=== PATIENT | female | born 1930 | race Caucasian/White ===

== ENCOUNTER 2016-12-19 19:47 | Inpatient (IN) | payer OTHER ==
--- NOTE | 2016-12-08 20:01 | CONSULTATION REPORT ---
DATE OF CONSULTATION: 11/15/2016 CHIEF COMPLAINT: 1. Necrotic ulcers of left leg HISTORY OF PRESENT ILLNESS: The patient is an 86-year-old woman with a previous stroke and ongoing peripheral neuropathy. She is nonambulatory. She has developed large necrotic ulcers of the left leg and has peripheral vascular disease, in addition. The patient is being seen for these ulcers and in the past has refused amputation. MEDICAL/SURGICAL HISTORY: Past medical history: Includes a stroke on 11/18/2013 involving the left side of her body and the right hemisphere. The patient was beyond the time frame for stroke protocol. Past medical history additionally includes longstanding high blood pressure, GERD, esophageal stenosis, right breast cancer, depression, arthritis, lumbar compression fracture, hypothyroidism, recurrent UTIs, C. difficile. Past surgery : Includes a compression screw and femoral shasta for right hip fracture in 2012, hysterectomy in , right breast lumpectomy and radiation, multiple EGDs and a laparoscopic Zakia with hiatal hernia repair, esophageal dilations, colonoscopy. Gynecology history : She is G3, para 1, AB2. 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 The patient had a miscarriage in one of her pregnancies. MEDICATIONS: 1. Mirtazapine 7.5 mg daily. 2. Alprazolam 0.25 mg q.12 hours as needed. 3. Gabapentin 100 mg daily. 4. Megace 400 mg daily. 5. Alendronate 70 mg weekly. 6. Famotidine 20 mg daily. 7. Tylenol with codeine 300/30 1 tablet as needed. 8. Nystatin powder as needed b.i.d. 9. Multiple vitamin supplements. 10. Started Pletal on 09/13/2016, 100 mg b.i.d. ALLERGIES: 1. SULFA DRUGS. 2. CERTAIN BLOOD PRESSURE MEDICATIONS. 3. IODINE. 4. GASTRIC IRRITATION FROM ASPIRIN. SOCIAL HISTORY: The patient is . She is in a [place] [facility]. She smoked many years ago and has not smoked for long time. She takes a glass of wine in the evenings. 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 Formerly also worked at the [employer]. FAMILY HISTORY: Mother at age 66 from a [place]. The patient's father of Alzheimer disease in his 70s. REVIEW OF SYSTEMS: Reviewed from previous visits and reviewed with the patient. She currently has mainly the problem with her left-sided weakness. She is not in acute pain from this. She is swallowing alright. She is having no acute chest pain or palpitations. She is not acutely short of breath. PHYSICAL EXAMINATION: GENERAL: The patient is alert and cooperative. VITAL SIGNS: Height 69 inches, weight 196, BMI 28.9. Temperature 97.4, respirations 18, blood pressure is low at 60/42 on several measurements. HEENT: The patient is alert and conversant as she always is. CHEST: Clear to auscultation. HEART: Regular rate. There is a systolic upper chest murmur heard. She additionally has bruits versus transmitted murmurs in the neck. There is no active thyromegaly or lymphadenopathy. The abdomen is nontender. EXTREMITIES: Lower extremity evaluation reveals large wounds involving the left medial malleolus measuring 4 x 4.5 cm with necrotic tissue present. There is also an open wound in the left metatarsal fifth head and pressure injuries of the calf. These are all necrotic eschars, which are softening and defined with exposed necrotic tendon and fascia. NEUROLOGIC: The patient is hemiplegic. IMPRESSION: 1. Left lower extremity necrotic ulcers with extensive tissue loss. PLAN: I have recommended the patient consider amputation since she is nonambulatory and these wounds are going to have a great deal of difficulty healing and be unlikely to heal from the standpoint of what I am seeing now. She is, at the time of this explanation, averse to amputation, though she will reconsider this operation, depending on how things progress. If at some point during the course of her wound care she decides to proceed with this recommendation she is to let us know and we will go ahead and proceed with a left leg above knee amputation.
[2016-12-15] VITALS (8 sets, daily range): BP systolic 94–136; BP diastolic 38–56
--- NOTE | 2016-12-15 14:45 | OPERATIVE REPORT ---
DATE OF SURGERY: 12/15/2016 SURGEON: Jamar Thomson MD PREOPERATIVE DIAGNOSIS: 1. Left leg gangrene POSTOPERATIVE DIAGNOSIS: 1. Left leg gangrene PROCEDURES PERFORMED: 1. Left leg above-knee amputation ANESTHESIA: General. INDICATIONS: The patient is an 86-year-old woman with gangrenous changes of her left leg. She has had a previous stroke and is nonambulatory and has a left hemiparesis. SURGICAL TECHNIQUE: The patient was taken to the operating room, where a general anesthetic was administered and the patient prepped and draped in the usual sterile fashion. A fish-mouth incision was designed on the lower leg and anesthetized with 0.5% Marcaine with epinephrine. The incision was incised, and the dissection was carried down with sharp dissection and electrocautery dissection. Note that a tourniquet was in place. Hemostasis during this procedure was obtained with 2-0 Vicryl ligatures, as well as a suture ligature on the major vessels, and clips and electrocautery. After dividing the muscles and soft tissues, the femoral vascular bundle was identified and suture ligated. The posterior tissues were divided. The tissues were retracted and the bone divided with an electrically-driven saw and the edges rounded off with a rasp. The wound was irrigated and the tourniquet was deflated. Hemostasis was completed. Once the wound was totally hemostatic, a flat 10 mm silicone drain was placed in the depth of the wound. The wound was closed in layers using interrupted 2-0 Vicryl suture for the muscular fascia and for the deep dermal layer, and vertical mattress 3-0 nylon sutures to the skin. One 3-0 nylon was used to tie to the drain to prevent its dislodgement, and it was allowed to exit through the lateral corner of the wound. The drain was placed to bulb suction, and the patient left in good condition. No intraoperative complications were encountered.
[2016-12-16] VITALS (7 sets, daily range): BP systolic 89–150; BP diastolic 38–63
[2016-12-17 03:12] VITALS: BP 135/60
[2016-12-17 06:50] VITALS: BP 119/47
[2016-12-17 10:49] VITALS: BP 78/43
[2016-12-17 13:52] VITALS: BP 115/55
[2016-12-17 18:33] VITALS: BP 99/45
[2016-12-17 23:04] VITALS: BP 62/46; BP 92/46
[2016-12-18 02:43] VITALS: BP 89/54
[2016-12-18 06:41] VITALS: BP 108/56
[2016-12-18 10:28] VITALS: BP 137/90
[2016-12-18 14:36] VITALS: BP 90/46
[2016-12-18 18:26] VITALS: BP 75/38
[2016-12-19] VITALS (9 sets, daily range): BP systolic 68–175; BP diastolic 22–148
[~2016-12-19] VITALS: Ht 175.3 cm; Wt 90.0 kg
--- NOTE | 2016-12-19 07:55 | Progress Note ---
Late Entry Date/Time Late Entry Date and Time LATE ENTRY Date of visit: Time of visit: Subjective General POD #4 left BKA Pt. has pain in the left stump. She was also seen for pre existing right leg/ foot ulcers with Diane Finley the wound care nurse. Physical Exam Vital Signs / I&Os Vital Signs Date Time Temp Pulse Resp B/P Pulse O2 O2 Flow FiO2 Ox Delivery Rate 12/19 0639 112/54 12/19 0627 98.6 83 18 95 Room Air 12/19 0343 80 20 122/82 95 12/19 0237 0.0 12/19 0110 90/45 12/19 0001 99.0 93 20 72/65 99 Room Air 12/18 1826 99.1 91 20 75/38 100 Room Air 12/18 1545 Room Air 0.0 12/18 1436 98.4 83 16 90/46 95 Room Air 12/18 1028 100.0 56 18 137/90 96 Room Air I&O 12/18 0800 12/18 1600 12/19 0000 Intake Total 250 680 440 Output Total 160 676 150 Balance 90 4 290 General Appearance Alert, Oriented X3, Cooperative Extremities the stump has some edema blisters, the suture line is viable. There is serous exudated and edema. The right leg has stable wounds on the lateral heel and calf. Assessment and Plan Problem List 1. Status post below knee amputation of left lower extremity Plan start closed wound vac to decrease edema and decrease static lymph and infection risk. 2. Pressure ulcer of right leg Plan Medihoney dressings daily.
--- NOTE | 2016-12-19 18:49 | DIAGNOSTIC IMAGING REPORT ---
PROCEDURE: CT HEAD WITHOUT CONTRAST INDICATION: POSSIBLE STROKE TECHNIQUE: Axial CT images were acquired through the head. Coronal and sagittal reformations were created. COMPARISON: 08/10/2013, 11/18/2013 FINDINGS: Mild motion artifact through the base of the brain. There is moderate cerebral cortical atrophy. Moderate confluent hypodensity in the periventricular and subcortical white matter. Streak artifact across the base of the brain precludes good visualization of the previously identified right pontine infarct No intracranial hemorrhage or extraaxial fluid collections. Ventricles are prominent in size, normal in shape and position. There is no mass, mass effect or midline shift. The davies-white matter differentiation is normal. There is no edema. Mild calcific atherosclerosis of the intracranial internal carotid arteries. The calvarium is intact. The paranasal sinuses and mastoid air cells are normally aerated. The extracranial soft tissues and orbits are normal. IMPRESSION: 1. No CT evidence of acute intracranial process. 2. Moderate diffuse atrophy and chronic microvascular ischemic changes including suboptimally visualized right pontine infarct previously present. 3. Findings discussed with Dr. Louis at [address] scans at this facility use dose modulation, iterative reconstruction, and/or weight-based dosing when appropriate to reduce radiation dose to as low as reasonably achievable.
[~2016-12-19 19:47] MED LIST: ALENDRONATE SOD70 MG PO; ALPRAZOLAM0.25 MG PO; ASPIRIN ADULT L81 M1 PO; FAMOTIDINE20 MG PO; GABAPENTIN100 MG PO; MACROBID100 MG PO; MIRTAZAPINE7.5 MG PO; MULTIPLE VITAMIN PO; NYSTATI1 TOP; TYLENOL/CODEINE #3 PO
[2016-12-20 02:04] VITALS: BP 122/78; BP 68/48
[2016-12-20 08:02] VITALS: BP 97/55
--- NOTE | 2016-12-20 11:08 | DIAGNOSTIC IMAGING REPORT ---
PROCEDURE: XR CHEST 1 VIEW INDICATION: chest congestion, confusion--R/O pneumonia, CHF TECHNIQUE: Portable AP view 10:23 a.m. COMPARISON: Chest 08/29/2016 and 11/18/2013 FINDINGS: Lungs are clear. Heart and mediastinum are normal. Thorax is normal. IMPRESSION: 1. Negative chest.
[2016-12-20 14:30] VITALS: BP 104/44
[2016-12-20 18:10] VITALS: BP 88/48
[2016-12-20 18:15] VITALS: BP 77/39
[2016-12-20 22:35] VITALS: BP 102/64
[2016-12-21] VITALS (7 sets, daily range): BP systolic 86–110; BP diastolic 41–78
--- NOTE | 2016-12-21 07:30 | Progress Note ---
Subjective General pt. c/o incisional pain, otherwise status quo Physical Exam Vital Signs / I&Os Vital Signs Date Time Temp Pulse Resp B/P Pulse O2 O2 Flow FiO2 Ox Delivery Rate 12/21 0616 98.2 81 20 101/41 94 Room Air 0.0 12/21 0501 102/58 12/21 0209 98.1 66 14 86/73 97 Room Air 12/20 2235 98.6 78 17 102/64 98 Room Air 12/20 1815 77/39 12/20 1810 98.4 74 18 88/48 99 Room Air 12/20 1733 0.0 12/20 1430 98.2 70 18 104/44 97 Room Air 12/20 0900 0.0 12/20 0802 98.1 70 18 97/55 95 Room Air 0.0 I&O 12/20 0800 12/20 1600 12/21 0000 Intake Total 550 620 240 Output Total 200 400 300 Balance 350 220 -60 General Appearance Alert, Oriented X3, Cooperative HEENT Normal exam Extremities dressing intact but LUZ MARIA drain isn't pulling much-will change to conventional dressings. Assessment and Plan Problem List 1. Status post below knee amputation of left lower extremity Plan regular dressings, consider back to SNF soon
[2016-12-22 02:40] VITALS: BP 92/53
[2016-12-22 06:22] VITALS: BP 96/52
[2016-12-22 11:22] VITALS: BP 121/56
--- NOTE | 2016-12-22 14:51 | Progress Note ---
Subjective General No new complaints, her right foot is sore. Physical Exam Vital Signs / I&Os Vital Signs Date Time Temp Pulse Resp B/P Pulse O2 O2 Flow FiO2 Ox Delivery Rate 12/22 1122 98.1 85 18 121/56 97 Room Air 0.0 12/22 0840 Room Air 0.0 12/22 0622 99.1 93 16 96/52 94 Room Air 0.0 12/22 0240 98.4 59 14 92/53 94 Room Air 12/21 2230 99.0 65 17 108/78 99 Room Air 12/21 1845 100.2 98 18 110/48 100 Room Air 12/21 1610 Room Air 0.0 I&O 12/21 0800 12/21 1600 12/22 0000 Intake Total 1310 90 1529 Output Total 750 550 300 Balance 560 -460 1229 General Appearance Alert, Oriented X3, Cooperative Extremities left stump is moderately warm and erythematous, the right foot lateral MTP area has a painful ulcer with erythema, the right calf ulcer is cooker cleaner but there is still necrotic fascia Assessment and Plan Problem List 1. Pressure ulcer of right leg 2. Status post below knee amputation of left lower extremity Plan there is more indication of cellulitis therefore will start antibiotics. the right foot and leg ulcers will be treated with santyl as well.
[2016-12-22 15:20] VITALS: BP 115/51
[2016-12-22 18:10] VITALS: BP 128/52
[2016-12-22 23:25] VITALS: BP 112/51
[2016-12-23] VITALS (7 sets, daily range): BP systolic 90–147; BP diastolic 40–58
--- NOTE | 2016-12-23 06:14 | Progress Note ---
Subjective General Post op day 8. Unchanged Physical Exam Extremities stump erythematous LAB Results Laboratory Tests 12/23 12/23 0535 3892 Chemistry Plasma Sodium Pending Plasma Potassium Pending Plasma Chloride Pending CO2 (Enzymatic) Pending BUN Pending Creatinine Pending Est GFR ( Amer) Pending Est GFR (Non-Af Amer) Pending Glucose Pending Plasma Calcium Pending Plasma Magnesium Pending Prealbumin Pending Hematology WBC (4.5 - 11.5 K/uL) 13.7 RBC (4.00 - 5.20 M/uL) 2.54 Hgb (12.0 - 16.0 gm/dL) 7.4 Hct (36.0 - 46.0 %) 22.9 MCV (80 - 100 fL) 90 MCH (26 - 34 pg) 29 RDW (11.6 - 14.8 %) 13.9 Neut % (Auto) (50 - 75 %) 74.3 Lymph % (Auto) (25 - 40 %) 13.2 [place] % (Auto) (3 - 14 %) 8.6 Eos % (Auto) (0 - 4 %) 3.5 Baso % (Auto) (0 - 2 %) 0.4 Plt Count, EDTA (150 - 400 K/uL) 453 PUBS MCHC (31 - 37 g/dL) 33 Assessment and Plan Problem List 1. Pressure ulcer of right leg Plan continue damp to dry dressing changes 2. Status post below knee amputation of left lower extremity Plan cellulitus of stump. continue antibiotics
[2016-12-24 02:00] VITALS: BP 118/55
[2016-12-24 06:18] VITALS: BP 134/58
--- NOTE | 2016-12-24 09:26 | Progress Note ---
Subjective General Postoperative day #9. Patient's only complaint is that she did not sleep well last night. Pain is well controlled. Patient is on oral medication and antibiotics. Physical Exam Vital Signs / I&Os Vital Signs Date Time Temp Pulse Resp B/P Pulse O2 O2 Flow FiO2 Ox Delivery Rate 12/24 0618 98.8 75 19 134/58 94 Room Air I&O 12/23 0800 12/23 1600 12/24 0000 Intake Total 1215 200 Output Total 75 1550 250 Balance 1140 -1350 -250 General Appearance Oriented X3 Extremities erythema over her left stump has not progressed. No drainage. Erythema at crease of the elbow has disappeared. Patient has a firm area over the inferior bicep with erythema. No tenderness to palpation Skin erythema over inferior bicep area., erythema has not progressed over amputation site left stump. LAB Results Laboratory Tests 12/23 1714 Urines Urine Color YELLOW Urine Appearance CLOUDY Urine pH (5.0 - 8.0) 6.0 Ur Specific [place] (1.010 - 1.030) 1.020 Urine Protein (NEGATIVE) 2+ Urine Ketones (NEGATIVE) NEGATIVE Urine Blood (NEGATIVE) 1+ Urine Nitrite (NEGATIVE) NEGATIVE Urine Bilirubin (NEGATIVE) NEGATIVE Urine Urobilinogen (0.2 - 1.0 EU/dL) 0.2 Ur Leukocyte Esterase (NEGATIVE) POSITIVE Urine RBC (0 - 1 rbc/hpf) NONE SEEN Urine WBC (0 - 1 wbc/hpf) >100 Ur Epithelial Cells (0 - 5 EPI/hpf) 1-3 Urine Bacteria (NONE SEEN) FEW (1+) Urine Glucose (NEGATIVE) NEGATIVE Urine Comment CULTURE INDICATED Microbiology Date/Time Procedure - Status Source Growth 12/23 1714 Urine Culture - RECD URINE CC Assessment and Plan Problem List 1. Pressure ulcer of right leg Plan Continue damp to dry dressings. 2. Status post below knee amputation of left lower extremity Plan Continue present conservative treatment.
[2016-12-24 12:47] VITALS: BP 131/61
[2016-12-24 17:59] VITALS: BP 103/47
[2016-12-24 23:05] VITALS: BP 95/43
[2016-12-25] VITALS (17 sets, daily range): BP systolic 65–133; BP diastolic 39–71
--- NOTE | 2016-12-25 09:27 | Progress Note ---
Subjective General comfortable. No SOB or chest pain. Stump itches. Physical Exam Vital Signs / I&Os Vital Signs Date Time Temp Pulse Resp B/P Pulse O2 O2 Flow FiO2 Ox Delivery Rate 12/25 0622 98.8 72 19 109/49 95 Room Air 12/25 0237 99.1 74 16 113/44 97 Room Air 12/24 2305 99.1 67 16 95/43 95 Room Air 12/24 2245 Room Air 12/24 1759 98.4 74 16 103/47 100 Room Air 12/24 1247 98.2 72 20 131/61 97 Room Air I&O 12/24 0800 12/24 1600 12/25 0000 Intake Total 125 465 325 Output Total 800 250 100 Balance -675 215 225 General Appearance Alert, Oriented X3 Lungs Clear to auscultation Extremities less erythema on L stump less erythema right antecubital region LAB Results Laboratory Tests 12/25 05 Chemistry Plasma Sodium (136 - 145 mmol/L) 144 Plasma Potassium (3.5 - 5.1 mmol/L) 4.0 Plasma Chloride (98 - 107 mmol/L) 110 CO2 (Enzymatic) (21 - 32 mmol/L) 21 BUN (7 - 18 mg/dL) 17 Creatinine (0.6 - 1.3 mg/dL) 1.1 Est GFR ( Amer) (mL/min) >60 Est GFR (Non-Af Amer) (mL/min) 49.82 Glucose (70 - 110 mg/dL) 98 Plasma Calcium (8.5 - 10.1 mg/dL) 8.5 Plasma Magnesium (1.8 - 2.4 mg/dL) 2.0 Hematology WBC (4.5 - 11.5 K/uL) 11.4 RBC (4.00 - 5.20 M/uL) 2.23 Hgb (12.0 - 16.0 gm/dL) 6.4 Hct (36.0 - 46.0 %) 20.2 MCV (80 - 100 fL) 91 MCH (26 - 34 pg) 29 RDW (11.6 - 14.8 %) 14.1 Neut % (Auto) (50 - 75 %) 72.1 Lymph % (Auto) (25 - 40 %) 16.8 [place] % (Auto) (3 - 14 %) 7.9 Eos % (Auto) (0 - 4 %) 2.8 Baso % (Auto) (0 - 2 %) 0.4 Plt Count, EDTA (150 - 400 K/uL) 576 PUBS MCHC (31 - 37 g/dL) 32 Assessment and Plan Problem List 1. Pressure ulcer of right leg Plan continue damp to dry 2. Status post below knee amputation of left lower extremity Plan continue present management
[2016-12-26 03:31] VITALS: BP 122/59
[2016-12-26 07:07] VITALS: BP 128/56
[2016-12-26 10:49] VITALS: BP 101/48
[2016-12-26 15:10] VITALS: BP 107/53
--- NOTE | 2016-12-26 15:43 | Progress Note ---
Subjective General Postoperative day #11. Patient comfortable, no complaints. No shortness of breath or chest pain. Physical Exam Vital Signs / I&Os Vital Signs Date Time Temp Pulse Resp B/P Pulse O2 O2 Flow FiO2 Ox Delivery Rate 12/26 1510 98.4 67 18 107/53 98 Room Air 8 I&O 12/25 0800 12/25 1600 12/26 0000 Intake Total 0 420 860 Output Total 125 450 100 Balance -125 -30 760 General Appearance Oriented X3, Cooperative Lungs Clear to auscultation Cardiovascular Regular rate and rhythm Extremities left stump incisional site evidence of bruising but no cellulitis. Posterior right calf pressure ulcer site minimal fibrinous exudate wound is granulating nicely. Antecubital region right elbow minimal cellulitis. No tenderness to palpation. LAB Results Laboratory Tests 12/26 0520 Chemistry Plasma Sodium (136 - 145 mmol/L) 144 Plasma Potassium (3.5 - 5.1 mmol/L) 4.6 Plasma Chloride (98 - 107 mmol/L) 112 CO2 (Enzymatic) (21 - 32 mmol/L) 22 BUN (7 - 18 mg/dL) 22 Creatinine (0.6 - 1.3 mg/dL) 1.3 Est GFR ( Amer) (mL/min) 49.80 Est GFR (Non-Af Amer) (mL/min) 41.09 Glucose (70 - 110 mg/dL) 98 Plasma Calcium (8.5 - 10.1 mg/dL) 8.3 Plasma Magnesium (1.8 - 2.4 mg/dL) 1.9 Hematology WBC (4.5 - 11.5 K/uL) 12.4 RBC (4.00 - 5.20 M/uL) 3.47 Hgb (12.0 - 16.0 gm/dL) 9.9 Hct (36.0 - 46.0 %) 30.7 MCV (80 - 100 fL) 89 MCH (26 - 34 pg) 28 RDW (11.6 - 14.8 %) 17.0 Neut % (Auto) (50 - 75 %) 72.7 Lymph % (Auto) (25 - 40 %) 16.6 [place] % (Auto) (3 - 14 %) 8.7 Eos % (Auto) (0 - 4 %) 2.0 Baso % (Auto) (0 - 2 %) 0 Plt Count, EDTA (150 - 400 K/uL) 557 PUBS MCHC (31 - 37 g/dL) 32 Assessment and Plan Problem List 1. Pressure ulcer of right leg Plan Granulating nicely minimal fibrinous exudate. Continue damp to dry dressing changes 2. Status post below knee amputation of left lower extremity Plan No evidence of cellulitis. Continue present management
[2016-12-26 18:40] VITALS: BP 135/61
[2016-12-26 22:48] VITALS: BP 91/46
[2016-12-27 02:34] VITALS: BP 116/44
[2016-12-27 07:12] VITALS: BP 126/46
[2016-12-27 16:05] VITALS: BP 100/51
[2016-12-27 20:16] VITALS: BP 122/49
[2016-12-27 22:33] VITALS: BP 91/49
[2016-12-28 02:20] VITALS: BP 118/65
[2016-12-28 06:48] VITALS: BP 94/58
[2016-12-28] MEDS ORDERED: AMOXICILLIN/CL875 MG PO (08:21)
[2016-12-28] MEDS ORDERED: CIPROFLOXACIN500 M1 PO (08:23)
--- NOTE | 2016-12-28 08:32 | Provider's Discharge Care Plan ---
Problem, Goal, Plan Problem List 1. Pressure ulcer of right leg Goals: Improve disease control, Improve function, Improved health/wellness, Increase independence Instructions: Follow up as directed, Increase activity level, Take meds as directed, follow wound care intructions from wound care nurse. FU with Dr. thomson and Wound cre clinic per Dr. Thmoson's orders. 2. Pseudomonas urinary tract infection Goals: Improve disease control, Improve function, Improved health/wellness, Increase independence, Improve nutrition status Instructions: Follow up as directed, Increase activity level, Take meds as directed, Take cipro 500 mg bid x 3 more d. Urine for UA and C and S on 3. Status post below knee amputation of left lower extremity Goals: Improve disease control, Improve function, Improved health/wellness, Increase independence Instructions: Follow up as directed, Increase activity level, Take meds as directed, Take augmentin 875 mg x 3 more days[address] FU with Dr. Thomson per his orders. , Continue other meds and treatments pt. was receiving prior to surgery. Call for any questions.
--- NOTE | 2017-01-07 12:53 | DISCHARGE SUMMARY ---
ADMIT DATE: 12/15/2016 DISCHARGE DATE: 12/28/2016 ADMITTING DIAGNOSIS: 1. 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 2. History of previous stroke with left-sided weakness and particularly left lower extremity weakness with patient unable to ambulate and wheelchair bound. 3. Other problems include chronic hypertension and chronic kidney disease and history of right breast cancer. DISCHARGE DIAGNOSES: 1. Gangrenous wounds of the left lower extremity with arterial insufficiency. 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 Jamar Thomson. 2. Other problems include cerebrovascular disease with in-hospital transient ischemic attack. 3. Arterial insufficiency to the right lower extremity with healing wounds of the right foot and lateral aspect of the right leg. 4. Pseudomonas urinary tract infection. 5. Chronic kidney disease. 6. Osteoarthritis. 7. Induration of the right breast following radiation treatments for breast cancer done years ago. 8. Intertrigo and skin irritation of the axillary areas and right breast and upper chest area. 9. Urinary tract infection with Pseudomonas. 10. Anemia of chronic disease and associated with aggravation from blood loss at the time of surgery. Transfusion of 2 units of packed red blood cells to treat this. 11. Depression. 12. Restless leg syndrome. Episodes of confusion and hallucinations related to pain medication given for dressing changes and wound care treatment. PROCEDURES PERFORMED: 1. Left lower extremity above-knee amputation done 12/15/[address] Thomson. 2. Sharp debridement of ulcer on the right lateral lower leg done 12/17/[address] Pineda. HOSPITAL COURSE: See the dictated history and physical exam for details concerning admission from Dr. Thomson. The patient was admitted for 12/15/2016 for above-knee amputation of the left lower extremity. She was taken to surgery and this was accomplished without significant difficulties. Postoperatively, she did fairly well, though she did have problems with pain control and received hydromorphone at times and morphine at times to help with the pain. She had quite a bit of pain with dressing changes and using pain medication seemed to cause her to have some confusion and hallucinations. She had the doses reduced to try to minimize this and this seemed to be helpful. She was switched to oral Tylenol with codeine and she seemed to do okay with this. By the end of her hospitalization, she was not needing high doses of pain medication and the hallucinations and confusion pretty much resolved. During the course, she did have some erythema develop along the incisional site and was placed on ampicillin sulbactam and then later on amoxicillin clavulanate. She was also on Zosyn prior to switching to the amoxicillin clavulanate. This seemed to be helpful in reducing the erythema on the wound. She also along the course of her recovery developed quite cloudy urine and culture was done growing out Pseudomonas. This was sensitive to ciprofloxacin and she was started on this as well. She had an ulcer on the lateral aspect of her right leg that needed debridement and Dr. Pineda accomplished this on 12/17/2016 and wound care was continued at this ulcer site. Initially this was quite painful, but it settled down over the course of the hospitalization. She did have quite sudden weakness and increased confusion on 12/19/2016 and was felt to have had a possible transient ischemic attack. She was taken to the emergency department and had a brain CT scan done and shows no evidence of new stroke. She had not been on the usual aspirin dose after the surgery and this was restarted and she had no further symptoms. Her acute symptoms cleared up within an hour or two. During her hospitalization, she was anemic with hematocrit of around 25. Over the hospital course, this dwindled down to a hematocrit of around 19 with hemoglobin of 6.3. She was feeling quite weak. She was transfused with 2 units of packed red blood cells and felt much better. Following the transfusion, her hematocrit maintained itself at around 30-31. She showed evidence of chronic kidney disease during her hospitalization with creatinine varying between 1.1 and 1.3. This did not prove to be a problem rather other than requiring some caution with medication doses. By the fourteenth hospital day, she was doing well and felt she was doing well enough to be discharged back to [facility]. DISCHARGE INSTRUCTIONS/MEDICATIONS: Discharge arrangements were made and she was able to be transferred there on 12/28/2016. She will resume her usual medications, which she had been taking there. Additionally, she will continue ciprofloxacin 500 mg b.i.d. for 3 more days for Pseudomonas urinary tract infection. She will also continue amoxicillin clavulanate 875 mg p.o. t.i.d. for 3 more days for low-grade erythema around the surgical wound. She will continue with dressing changes on the chronic skin ulcers on the right foot and lateral aspect of the right leg. Her other usual medications will include: Acetaminophen 325 mg 2 tablets every 4-6 hours as needed for pain. Probiotic 1 daily. Alendronate 70 mg 1 tablet once weekly. Alprazolam 0.25 mg strength 1 b.i.d. p.r.n. for anxiety. Azelastine nasal spray 1 spray into each nostril once or twice daily as needed for nasal congestion. Calcium 500 mg 1 tablet b.i.d. Clobetasol cream 0.05% mixed with clotrimazole cream 1% applied to the skin rash on the upper chest wall and axillary areas b.i.d. for a 14-day course of treatment for flares of skin irritation. Vitamin B12 250 mcg 1 daily. Cymbalta 60 mg 1 daily for depression. Famotidine 20 mg daily for stomach acid control. Gabapentin 100 mg 1 at bedtime for restless leg symptoms. Levothyroxine 100 mcg daily for hypothyroidism. Linzess 145 mcg p.o. daily as needed for constipation. Mirtazapine 7.5 mg 1 at suppertime for depression and to help with appetite. Prednisone 5 mg daily for controlling arthritis. Trazodone 25 mg 1 in the evening to help with sleeplessness. Tylenol with codeine 30 mg 1 tablet at bedtime and 1 tablet during the night as needed for pain control. Vitamin D3 2000 units daily. The patient will follow up with Dr. Thomson per his instructions. O will see the patient at the custodial within 14 days of her discharge.
== END 2016-12-28 14:00 | DRG 239 ==
LOC: ED SRH 19:48 → ACUTE2 SRH 20:44
PROVIDERS: ADMIT Surgery
PROC: 0Y6G0ZZ Detachment at Left Knee Region, Open Approach (ICD-10-PCS; principal; 2016-12-15 11:00)
PROC: 0KBS0ZZ Excision of Right Lower Leg Muscle, Open Approach (ICD-10-PCS; 2016-12-17)
PROC: 30233N1 Transfusion of Nonautologous Red Blood Cells into Peripheral Vein, Percutaneous Approach (ICD-10-PCS; 2016-12-25)
DX: I70.262 Atherosclerosis of native arteries of extremities with gangrene, left leg (principal); L89.894 Pressure ulcer of other site, stage 4; L89.524 Pressure ulcer of left ankle, stage 4; I69.954 Hemiplegia and hemiparesis following unspecified cerebrovascular disease affecting left non-dominant side; D62 Acute posthemorrhagic anemia; G45.9 Transient cerebral ischemic attack, unspecified; T81.4XXA Infection following a procedure, initial encounter; L03.116 Cellulitis of left lower limb; R44.3 Hallucinations, unspecified; N39.0 Urinary tract infection, site not specified; B96.5 Pseudomonas (aeruginosa) (mallei) (pseudomallei) as the cause of diseases classified elsewhere; I10 Essential (primary) hypertension; R41.0 Disorientation, unspecified; T42.6X5A Adverse effect of other antiepileptic and sedative-hypnotic drugs, initial encounter; T40.2X5A Adverse effect of other opioids, initial encounter; L30.4 Erythema intertrigo; D63.1 Anemia in chronic kidney disease; G25.81 Restless legs syndrome; Z99.3 Dependence on wheelchair
CPT/HCPCS: 50002; 60001; 70002; 80102; 80118; 80212; 80813; 81312; 83167; 83413; 83475; 83750; 83754; 83766; 84038; 84044; 84347; 85241; 85243; 90001; 90004; 90047; 90065; 90074; 90100; 90101; 90148; 90155; 90469; 90616; 91004; 91544; 92031; 92235; 92530; 92610; 92668; 92670; 92720; 93004; 94001; 94060; 95059

== ENCOUNTER 2017-01-30 10:41 | Outpatient (CLI) | payer OTHER ==
[~2017-01-30 10:41] MED LIST changes: +AMOXICILLIN/CL875 MG PO; +CIPROFLOXACIN500 M1 PO
--- NOTE | 2017-01-30 13:11 | DIAGNOSTIC IMAGING REPORT ---
PROCEDURE: US ART LOWER EXT DOPPLER-RIGHT INDICATION: ARTERIAL INSUFFIENCY NON HEALING WOUND TECHNIQUE: Color Doppler duplex imaging of the lower extremity was performed. ABIs not performed secondary to tender wounds. COMPARISON: Bilateral lower extremity venous insufficiency ultrasound and bilateral lower extremity arterial ultrasound 08/29/2016. FINDINGS: VESSELS: Moderate to severe atherosclerosis . There is biphasic wave form from the external iliac to the proximal SFA with monophasic wave form distally to the ankle. Interval progression of posterior tibial artery occlusion which includes the proximal posterior tibial artery. There is also retrograde flow in the anterior tibial artery. LOWER EXTREMITY PEAK SYSTOLIC VELOCITIES: External iliac: 138 cm/second. Common femoral artery: 90 cm/second. Profunda femoral artery: 123 cm/second. Proximal superficial femoral artery: 79 cm/second. Mid superficial femoral artery: 103 cm/second. Distal superficial femoral artery: 51 cm/second. Popliteal artery: 34 cm/second. Proximal posterior tibial artery: Occluded Proximal anterior tibial artery: 24 cm/second, retrograde. Distal posterior tibial artery: Occluded Dorsalis pedis artery: 19 cm/second. IMPRESSION: 1. Moderate to severe atherosclerosis. Biphasic wave form from the external iliac artery to the proximal SFA suggestive of inflow disease, with monophasic wave form distally. Interval progression of posterior tibial artery occlusion which now includes the proximal posterior tibial artery in addition to the previously noted distal posterior tibial artery occlusion. There is also retrograde flow in the anterior tibial artery.
== END 2017-01-30 23:00 ==
LOC: US SRH 10:41
DX: I70.291 Other atherosclerosis of native arteries of extremities, right leg (principal); I74.3 Embolism and thrombosis of arteries of the lower extremities